=== PATIENT | male | born 1985 | race African-American/Black ===

== ENCOUNTER 2018-05-20 18:03 | Emergency (ER) | payer SELFPAY ==
[~2018-05-20] VITALS: Ht 170.2 cm; Wt 77.0 kg
[2018-05-20 18:24] VITALS: BP 101/59
== END 2018-05-21 00:29 | disposition left against medical advice (07) ==
LOC: ER 19:07
DX: R51 Headache (principal); Z53.21 Procedure and treatment not carried out due to patient leaving prior to being seen by health care provider